=== PATIENT | male | born 1940 | race Caucasian/White ===

== ENCOUNTER 2016-09-11 14:31 | Emergency (ER) | payer MEDICARE, OTHER ==
[2016-09-11] MEDS ORDERED: KETOROLAC TROMETHAMINE 60 MG/2 ML VIAL IM ONE (14:42)
--- NOTE | 2016-09-11 15:32 | ED Physician Documentation ---
Lower Extremity Problem - HISTORIAN Historian: patient - HPI Stated Complaint: left knee pain Chief Complaint: Lower Extremity Problem Location of Injury: L knee Onset: days ago (2) Timing: worse Recent Injury: No Severity: severe Quality: pain, tenderness Exacerbated By: walking, movement Relieved By: rest Associated Symptoms: denies: chest pain, shortness of breath, rapid heart rate, fainting Further Comments: yes (76 year old male patient presents with left knee pain which started 2 days ago. Patient denies injury, previous knee pain or fall. States walking makes it worse, took 1 aleve yesterday, no improvement.) - ROS CONST: no problems MS/SKIN/LYMPH: none CVS/RESP: none GI/: none EYES/ENT: none NERUO/PSYCH: denies: headache - PAST HX Past History: none PE Risk Factors: hypertension Other History: hyperlipidemia, hypertension, other (hypothyroidism) Allergies/Adverse Reactions: Allergies Allergy/AdvReac Type Severity Reaction Status Date / Time No Known Drug Allergies Allergy Verified 09/11/16 14:49 Home Medications: Ambulatory Orders Medication Instructions Recorded Ketorolac Tromethamine [Toradol] 10 mg PO TID #15 tablet 09/11/16 - SOCIAL HX Smoking History: non-smoker - FAMILY HX Family History: denies: none - VITAL SIGNS Vital Signs: Vital Signs Temp Pulse Resp BP Pulse Ox 97.4 F L 68 16 127/68 95 09/11/16 14:42 09/11/16 15:37 09/11/16 15:37 09/11/16 15:37 09/11/16 15:37 - REVIEWED ASSESSMENTS Nursing Assessment Reviewed: Yes Vitals Reviewed: Yes Progress - Progress Progress: Patient does not currently have a PCP. Medicated for pain with toradol IM List provided; reviewed discharge plan. Daughter with patient, verbalized understanding. ED Results Lab/Radiology - Radiology Radiology Impressions: Bilateral knees 2 views History: Knee pain Findings: 2 views of right knee reveal tiny patellar osteophytes and mild medial compartment joint space narrowing without fracture or joint effusion. Atherosclerotic calcification is noted. 2 views of the left knee reveal tiny patellar osteophytes. No other abnormalities are observed. Impression: 1. Tiny bilateral patellar osteophytes. 2. Mild right medial femorotibial compartment joint space narrowing. - Orders Orders: ED Orders Category Date Time Status BILAT KNEE 1 OR 2 VIEWS [RAD] Stat Exams 09/11/16 Completed Ketorolac Tromethamine [Toradol] Med 09/11/16 14:42 Discontinued 60 mg IM NOW ONE Lower Extremity Problem - EXAM General Appearance: mild distress Hips: bilateral hip: non-tender, normal inspection, normal range of motion, no evidence of injury, bone tenderness Legs: bilateral: non-tender, normal inspection, normal range of motion, no evidence of injury Knees: right: non-tender, normal range of motion, left: bone tenderness, pain ( Pain left knee medial and lateral aspect; neg draw, no laxity noted; limping due to pain), soft tissue tenderness, bilateral: normal inspection, no evidence of injury Ankle: bilateral: non-tender, normal inspection, normal range of motion, no evidence of injury Neuro/Tendon: normal sensation, normal motor functions, normal tendon functions , no evidence tendon injury EENT: NOELLE RESPIRATORY: no resp distress, chest non-tender, breath sounds normal CVS: reg rate & rhythm, heart sounds normal, equal pulses, no murmur, no gallop , PMI nml, no JVD, no friction rub, 24 NEURO/PSYCH: oriented X3, CN's nml as tested, motor nml, sensation nml SKIN: normal color, warm/dry, NR, INT, PAL, DR Discharge Clincal Impression: Left knee pain Qualifiers: Chronicity: acute Qualified Code(s): M25.562 - Pain in left knee Prescriptions: Ketorolac Tromethamine [Toradol] 10 mg PO TID #15 tablet Referrals: Primary Doctor,No [Primary Care Provider] - 2 Days Home Medications: Ambulatory Orders Ketorolac Tromethamine [Toradol] 10 mg PO TID #15 tablet 09/11/16 Condition: Good Disposition: 01 HOME, SELF-CARE Decision to Admit: NO Decision Time: 16:03
--- NOTE | 2016-09-11 15:42 | Diagnostic Imaging Report ---
~ [facility] [address] [facility].[address] [address] ~ ~ ~ ~ Report Submission Date: Sep 11, 2016 3:19:56 PM ENVIRONMENTAL COMPLIANCE SPECIALIST Patient ~ Study Name: LIDIA ARREDONDO ~ Date: Sep 11, 2016 2:50:04 PM ENVIRONMENTAL COMPLIANCE SPECIALIST ~ Modality Type: CR Gender: M ~ Description: LOWER EXTREMITY : 42 ~ Institution: [facility] Physician: CONSTANZA CAMPBELL ~ ~ ~ ~ Bilateral knees 2 views History: Knee pain Findings: 2 views of right knee reveal tiny patellar osteophytes and mild medial compartment joint space narrowing without fracture or joint effusion. Atherosclerotic calcification is noted. 2 views of the left knee reveal tiny patellar osteophytes. No other abnormalities are observed. Impression: 1. Tiny bilateral patellar osteophytes. 2. Mild right medial femorotibial compartment joint space narrowing. ~ Electronically signed on Sep 11, 2016 3:19:56 PM ENVIRONMENTAL COMPLIANCE SPECIALIST by: Chepe POSEY
[2016-09-11 15:47] VITALS: BP 127/68
== END 2016-09-11 15:37 | disposition home or self-care (01) ==
LOC: ED 14:31
DX: M25.562 Pain in left knee (principal)
CPT/HCPCS: 73560; J1885; 96372; 99283

== ENCOUNTER 2017-03-06 09:30 | Outpatient (CLI) | payer OTHER, MEDICARE ==
--- NOTE | 2017-03-06 13:50 | Diagnostic Imaging Report ---
MAITE PEGUERO - IVON [facility] [address] [facility] [address] [address] Report Submission Date: Mar 06, 2017 12:54:09 PM CDT Patient Study Name: LIDIA ARREDONDO Date: Mar 06, 2017 9:47:17 AM CDT Modality Type: US Gender: M Description: US RETROPERITONEAL LIMIT : 42 Institution: [facility] Physician: MAITE PEGUERO - IVON Examination: Ultrasound kidneys History: Renal failure Comparison exams: None available Findings: Right kidney measures 9.8 cm in length. Left kidney measures 10.6 cm in length. No evidence for cortical mass bilaterally. Echogenic renal margins. 2 cm cyst upper pole left kidney. Impression: Echogenic renal margins suggesting advanced medical renal disease. No evidence for cortical mass or obstruction. Electronically signed on Mar 06, 2017 12:54:09 PM CDT by: Sulaiman POSEY
== END 2017-03-06 09:32 ==
LOC: RAD 09:30
PROVIDERS: ATTEND Family Medicine
DX: N40.1 Benign prostatic hyperplasia with lower urinary tract symptoms (principal); R35.1 Nocturia; N19 Unspecified kidney failure
CPT/HCPCS: 76775

== ENCOUNTER 2017-09-22 09:39 | Emergency (ER) | payer OTHER, MEDICARE ==
[2017-09-22 10:02] VITALS: BP 156/76
--- NOTE | 2017-09-22 10:19 | ED Physician Documentation ---
General Adult - HISTORIAN Historian: patient - HPI Stated Complaint: L foot pain, swelling Chief Complaint: General Adult Additional Information: onset 1-2 days ago swelling and redness lt foot hillary base great toe and redness distal 3rd toe. hurts to bear wt. wears 2 socks on lt foot. became sig worse last noct at work - on feet at [employer] Onset: days ago (1-3) Timing: worse Severity: moderate - ROS CONST: no problems EYES/ENT: none CVS/RESP: none GI/: problems urinating (occ dysuria worse pas few days-has seen urologists in past but unsure of cause-sent by PCP) MS/SKIN/LYMPH: joint pain (base bigtoe) - PAST HX Past History: hypertension, other (hi chol lo thryoid djd) Surgeries/Procedures: none Allergies/Adverse Reactions: Allergies Allergy/AdvReac Type Severity Reaction Status Date / Time No Known Drug Allergies Allergy Verified 09/22/17 10:05 Home Medications: Ambulatory Orders Medication Instructions Recorded amLODIPine BESYLATE [Norvasc] 10 mg PO DAILY 09/22/17 - SOCIAL HX Smoking History: non-smoker Alcohol Use: rarely Drug Use: none - FAMILY HX Family History: Yes (no known gouty arthritis) - VITAL SIGNS Vital Signs: Vital Signs Temp Pulse Resp BP Pulse Ox 62 18 156/76 98 09/22/17 09:57 09/22/17 09:57 09/22/17 09:57 09/22/17 09:57 - REVIEWED ASSESSMENTS Nursing Assessment Reviewed: Yes Vitals Reviewed: Yes ED Results Lab/Radiology - Lab Results Lab Results: pt has hi uric acid--hi bs--low renal function - Orders Orders: ED Orders Category Date Time Status CBC/PLATELET/DIFF Routine Lab 09/22/17 Ordered CMP Routine Lab 09/22/17 Ordered URIC ACID Stat Lab 09/22/17 Ordered General Adult Physical Exam - PHYSICAL EXAM GENERAL APPEARANCE: mild distress EENT: eye inspection normal NECK: normal inspection, supple, carotid bruit (mild bilat) RESPIRATORY: no resp distress, breath sounds normal CVS: reg rate & rhythm, murmur (gr 2 systolic) ABDOMEN: soft, non-tender SKIN: warm/dry, normal color. No: cyanosis, diaphoresis, jaundice EXTREMITIES: other (redness pain at base big toe-saym redness distal 3rd toe) NEURO: oriented X3, motor nml, sensation nml, mood/affect nml Discharge Clincal Impression: acute gouty arthritis lt big toe, possile early diabetes, poss early renal failure Referrals: Chepe Mackey MD [Primary Care Provider] - 2 Days Comments: pt sent w/ lab for pcp and to see him soon re above dx he is advised re nsaids w/poss renal damage so use indocin sparin gly and to see pcp very soon Condition: Good Disposition: 01 HOME, SELF-CARE Decision to Admit: NO Decision Time: 11:11
[2017-09-22] MEDS ORDERED: MAG HYDROX/AL HYDROX/SIMETH 30 ML, Lidocaine 2%Visc 15ml 20 MG, PHENobarb/HYOSCY/ATROPI... PO ONE ×3 (10:27)
[2017-09-22 10:29] LABS: BASOPHILS % 0.7 (0.0-1.5); EOSINOPHILS % 2.8 % (0.0-6.8); MEAN CORPUSCULAR HEMOGLOBIN 30.5 pg (28.0-34.0); MEAN CORPUSCULAR VOLUME 91.4 fl (80.0-100.0); MONOCYTES % 4.8 % (0.0-11.0); NEUTROPHILS # 6.8 # k/uL (1.4-7.7)
== END 2017-09-22 11:15 | disposition home or self-care (01) ==
LOC: ED 09:39
DX: M10.9 Gout, unspecified (principal)
CPT/HCPCS: 80053; 84550; 85025; 99283

== ENCOUNTER 2018-02-12 09:48 | Outpatient (CLI) | payer OTHER, MEDICARE ==
[2018-02-12 10:18] LABS: EOSINOPHILS % 4.6 % (0.0-6.8); MEAN CORPUSCULAR HEMOGLOBIN 30.5 pg (28.0-34.0); MEAN CORPUSCULAR VOLUME 92.1 fl (80.0-100.0); MONOCYTES % 4.9 % (0.0-11.0); NEUTROPHILS # 3.2 # k/uL (1.4-7.7)
[2018-02-12 10:42] LABS: eGFR (African) 51; eGFR (Non-African) 42
== END 2018-02-12 09:50 ==
LOC: LAB 09:48
PROVIDERS: ATTEND Internal Medicine Nephrology
DX: N18.3 Chronic kidney disease, stage 3 (moderate) (principal); I12.9 Hypertensive chronic kidney disease with stage 1 through stage 4 chronic kidney disease, or unspecified chronic kidney disease; E03.9 Hypothyroidism, unspecified; E78.5 Hyperlipidemia, unspecified; M10.00 Idiopathic gout, unspecified site; Z68.35 Body mass index [BMI] 35.0-35.9, adult
CPT/HCPCS: 36415; 80053; 80061; 84443; 84550; 85025

== ENCOUNTER 2018-06-13 14:24 | Outpatient (CLI) | payer OTHER, MEDICARE ==
[2018-06-13 15:45] LABS: eGFR (Non-African) > 60
[2018-06-13 21:58] LABS: BASO % 0.6 % (0.0-1.5); MCH. 28.6 pg (28.0-34.0); MCV 86.8 fL (80.0-100.0); MONOCYTE % 5.8 % (0.0-11.0); MONOCYTE ABS # 0.42 thou/uL (0.00-0.90); PLATELET COUNT 276 thou/uL (130-400)
== END 2018-06-13 14:26 ==
LOC: LAB 14:24
PROVIDERS: ATTEND Internal Medicine Nephrology
DX: N18.3 Chronic kidney disease, stage 3 (moderate) (principal); I12.9 Hypertensive chronic kidney disease with stage 1 through stage 4 chronic kidney disease, or unspecified chronic kidney disease; E03.9 Hypothyroidism, unspecified; E78.5 Hyperlipidemia, unspecified; M10.00 Idiopathic gout, unspecified site; Z68.35 Body mass index [BMI] 35.0-35.9, adult
CPT/HCPCS: 36415; 80053; 80061; 84436; 84443; 85025

== ENCOUNTER 2018-11-14 09:41 | Outpatient (CLI) | payer OTHER, MEDICARE ==
[2018-11-14 10:32] LABS: eGFR (Non-African) 55
== END 2018-11-14 10:00 ==
LOC: LAB 09:41
PROVIDERS: ATTEND Internal Medicine Nephrology
DX: I12.9 Hypertensive chronic kidney disease with stage 1 through stage 4 chronic kidney disease, or unspecified chronic kidney disease (principal); E03.9 Hypothyroidism, unspecified; E78.5 Hyperlipidemia, unspecified; M10.00 Idiopathic gout, unspecified site; N18.2 Chronic kidney disease, stage 2 (mild); Z68.34 Body mass index [BMI] 34.0-34.9, adult
CPT/HCPCS: 36415; 80053; 80061; 84443

== ENCOUNTER 2019-06-24 15:46 | Outpatient (CLI) | payer OTHER, MEDICARE ==
[2019-06-24 16:22] LABS: BASOPHILS % 0.5 % (0.0-1.5)
[2019-06-24 16:23] LABS: NEUTROPHILS # 5.9 # k/uL (1.4-7.7)
[2019-06-24 16:50] LABS: HDL 42 mg/dL (>40); eGFR (Non-African) 38
[2019-06-24 16:51] LABS: A1C 6.2 % (<5.7)
== END 2019-06-24 15:51 | disposition home or self-care (01) ==
LOC: LAB 15:46
PROVIDERS: ATTEND Internal Medicine Nephrology
DX: I12.9 Hypertensive chronic kidney disease with stage 1 through stage 4 chronic kidney disease, or unspecified chronic kidney disease (principal); N18.2 Chronic kidney disease, stage 2 (mild); E03.9 Hypothyroidism, unspecified; E78.5 Hyperlipidemia, unspecified; M10.00 Idiopathic gout, unspecified site
CPT/HCPCS: 36415; 80053; 80061; 83036; 85025